=== PATIENT | female | born 1960 | race Caucasian/White ===

== ENCOUNTER 2022-06-12 09:13 | Outpatient (CLI) | payer OTHER, SELFPAY | END 2022-06-12 09:14 | disposition home or self-care (01) | PROVIDERS: PCP Physician Assistant Medical; Visit Provider Family Medicine | DX: M16.12 Unilateral primary osteoarthritis, left hip (principal); M25.552 Pain in left hip | CPT/HCPCS: 20610; 77002; J0702; Q9966 ==

== ENCOUNTER 2022-07-28 07:10 | Outpatient (CLI) | payer OTHER, SELFPAY | END 2022-07-28 07:11 | disposition home or self-care (01) | PROVIDERS: PCP Family Medicine; Visit Provider Family Medicine | DX: M54.16 Radiculopathy, lumbar region (principal); M51.36 Other intervertebral disc degeneration, lumbar region | CPT/HCPCS: 62323; J0702; Q9966 ==

== ENCOUNTER 2022-09-22 08:28 | Outpatient (CLI) | payer OTHER, SELFPAY | END 2022-09-22 08:29 | disposition home or self-care (01) | LOC: INJ CL 08:29 | PROVIDERS: PCP Family Medicine; Visit Provider Family Medicine | DX: M54.16 Radiculopathy, lumbar region (principal); M51.36 Other intervertebral disc degeneration, lumbar region | CPT/HCPCS: 64483; J1100; Q9966 ==

== ENCOUNTER 2022-12-22 13:27 | Outpatient (CLI) | payer OTHER, SELFPAY | END 2022-12-22 13:28 | disposition home or self-care (01) | PROVIDERS: PCP Family Medicine; Visit Provider Orthopaedic Surgery | DX: Z01.818 Encounter for other preprocedural examination (principal) | CPT/HCPCS: 36415; 86850; 86900; 86901 ==

== ENCOUNTER 2022-12-24 09:38 | Day surgery (SDC) | payer OTHER, SELFPAY ==
--- NOTE | 2022-12-08 09:52 | SUR.PREOP ---
12/08/22, briefly talked with pt per phone. She will schedule her H&P at [facility]. Instructed to come to the hospital lab on 12/22 for her type and screen. Candace Alfonso RN
[2022-12-24] VITALS (23 sets, daily range): BP systolic 100–149; BP diastolic 61–118; PULSE 52–88; RESP 12–99; TEMP 36.1–36.9; O2SAT 94–100; BMI 36.7
--- NOTE | 2022-12-24 | CRLHL7_ITS ---
For Patients: As a result of the Cures Act, medical imaging exams and procedure reports are released immediately into your electronic medical record. You may view this report before your referring provider. If you have questions, please contact your health care provider. INDICATION: Postoperative evaluation. TECHNIQUE: Two views of the left hip. COMPARISON: Earlier same day intraoperative imaging. FINDINGS: Interval completion of left total hip arthroplasty. Hardware appears intact and well positioned. No dislocation or fracture. Small volume postoperative gas about the left hip. IMPRESSION: Expected postoperative changes recent left total hip arthroplasty. Dictated by Gwyn Branch MD @ 12/24/2022 6:17:23 PM Dictated by: Gwyn Branch MD @ 12/24/2022 18:17:31 (Electronically Signed)
[2022-12-24] MEDS: OXYCODONE (CR) 10 MG TAB.ER.12H PO (10:50)
[2022-12-24] MEDS: ACETAMINOPHEN 500 MG TABLET 1000 MG PO ×3 (10:50→23:30)
[2022-12-24] MEDS: CELECOXIB 200 MG CAPSULE PO (10:50)
[2022-12-24] MEDS: LACTATED RINGERS 1000 ML 1,000 ML 100 ML IV ×2 (11:25→13:40)
[2022-12-24] MEDS: SODIUM CHLORIDE 0.9 % (FLUSH) 10 ML SYRINGE IVF (11:28)
--- NOTE | 2022-12-24 11:28 | SUR.PREOP ---
multiple attempts at iv.
[2022-12-24] MEDS: MIDAZOLAM HCL 1 MG/ML inj IVP (12:10)
[2022-12-24] MEDS: fentaNYL 100 MCG/2 ML inj IVP (12:10)
--- NOTE | 2022-12-24 12:16 | SUR.PREOP ---
TIME?OUT:?1207, left hip PT/RN/MDA?VERIFICATION?OF?SURGICAL?SITE,?PROCEDURE,?AND?CONSENT OBTAINED?PRIOR?TO?INVASIVE?PROCEDURE.
--- NOTE | 2022-12-24 12:23 | P.NB_ITS ---
Nerve Block Nerve Block Time Seen by Provider: 12:15 Date Seen: 12/24/22 Type of block requested by surgeon for post-operative analgesia: TIERRA/LFCN Side: left Time out performed: Yes Verification of patient name: Yes Verification of date of : Yes Site marking: site marked Name of person performing procedure: Raghav Continuous monitoring Was continuous monitoring of O2 sat, B/P, data officer, recorded every 15 minutes?: Yes Procedure Checklist: sterile prep, needles and gloves Ultrasound guided. Images saved: Yes Medications given in 5ml increments after negative aspiration: Ropivicaine %: 0.5 mL: 30 Needle gauge: 20 Decadron (mg): 10 Precedex (mcg): 25 Patient tolerated procedure well: Yes Additional comments: Needle noted below psoas tendon needle noted adjacent to LFCN Block Charges Block Charge (with Pro Fee): Other Periph Nerve Block Use of Ultrasound Machine for Block: Yes- US Guidance/pain block
--- NOTE | 2022-12-24 12:23 | W.ANESCHARGE ---
Anesthesia Charges Start Date/Time Anesthesia Start Date: 12/24/22 Anesthesia Start Time: 12:27 Stop Date/Time Anesthesia Stop Date: 12/24/22 Anesthesia Stop Time: 15:04
[2022-12-24] MEDS: CEFAZOLIN 2 GM INJ IVP (12:35)
--- NOTE | 2022-12-24 13:00 | CRLHL7_ITS ---
For Patients: As a result of the Century Cures Act, medical imaging exams and procedure reports are released immediately into your electronic medical record. You may view this report before your referring provider. If you have questions, please contact your health care provider. INDICATION: Follow up left hip arthroplasty. TECHNIQUE: Fluoroscopically guided intraoperative evaluation of the left hip. Two intraoperative spot images were obtained. FINDINGS: Left hip arthroplasty. The components are adequately aligned. 80.6 seconds fluoroscopy time utilized. IMPRESSION: 80.6 seconds fluoroscopy time utilized intraoperatively. Dictated by Naldo Mann MD @ 12/24/2022 3:03:18 PM (Electronically Signed)
--- NOTE | 2022-12-24 14:14 | PM.ORPRC ---
Procedure Note Date of procedure: 12/24/22 Procedure: PREOPERATIVE DIAGNOSIS: Left hip osteoarthritis POSTOPERATIVE DIAGNOSIS: Left hip osteoarthritis NAME OF OPERATION: Left total hip arthroplasty SURGEON: Ethan Pete MD INSPECTOR BICYCLE: Bonnie Woodard PA-C, KASH White IMPLANTS: 1. [employer] # 50 sector ingrowth cup 2. 32 x 50 +4 neutral polyethylene 3. Actis #4 standard collared ingrowth stem 4. 32 + 1.0 ceramic femoral head ANESTHESIA: General ESTIMATED BLOOD LOSS: 900 cc COMPLICATIONS: None SPECIMENS: None DRAINS: None PREOPERATIVE ANTIBIOTICS: Ancef 2 grams INDICATIONS: The patient is a 62-year-old with a longstanding history of severe, unrelenting left hip pain secondary to end-stage left hip osteoarthritis. Despite appropriate nonoperative management, including activity modification, use of an assist device, anti-inflammatories, [id number] pain medication, physical therapy and injections, they continue to have pain and disability. Operative intervention was offered. The risks, benefits and expected outcomes were discussed in detail. These included but were not limited to: Infection, bleeding, injury to blood vessel or nerve, venous thromboembolism. All questions were answered to their satisfaction. Use of an hospital medical assistant was necessary throughout the case for patient positioning and safety, soft tissue retraction and closure. PROCEDURE: The patient was placed supine on the [place] table. General anesthesia was administered. The hospital medical assistant made sure the patient was properly positioned. The left hip was prepped and draped in the usual sterile fashion. The image intensifier was brought in for a perfect AP pelvis and a perfect double tear drop AP view of each hip which were used for intraoperative templating with our fluoroscopic guide. An oblique incision was made 3 cm distal and 3 cm lateral to the anterior superior iliac spine. The hospital medical assistant retracted the soft tissues to protect them. Subcutaneous dissection was taken with electrocautery to the superficial fascia. The fascia was divided in line with the incision. Blunt dissection was carried medially to the tensor fascia alfonso and sartorius interval. Deep dissection was carried with electrocautery. The circumflex vessels were cauterized and divided. The capsule was exposed and then divided in a T-fashion, tagged with #1 Ethibond sutures. Retractors were placed in the joint, held by the hospital medical assistant. The corkscrew was placed in the femoral head. The neck cut was made in the subcapital region. We made a second neck cut more distal. The napkin ring of bone was removed. The femoral head was removed intact. Acetabular retractors were placed, held by the hospital medical assistant. The labrum was sharply debrided. The capsule was released. The 43 mm reamer was used to the true medial wall. We then enlarged in 2 mm increments using the image intensifier for our reamer placement. We impacted the cup which had excellent purchase. We placed the hole eliminator and the polyethylene. Attention was then turned to the proximal femur. The limb was placed in 140 degrees of external rotation, maximum extension and adduction. A significant amount of time was spent releasing the capsule to allow us to deliver the femur into the wound and complete the femoral side safely. Retractors were held by the hospital medical assistant throughout the femoral preparation. The coin box inspector and canal finder were used. Broaches were used to a stable size. The calcar reamer was used. Trial components were placed. The hip was reduced and was found to be stable with appropriate soft tissue tension. Length and offset had been nicely restored using the image intensifier and our fluoroscopic guide. Trial components were removed. The stem was impacted. We placed the femoral head. Again, the hip was reduced and was found to be stable with appropriate soft tissue tension. Length and offset had been nicely restored. The hospital medical assistant did a three minute dilute Betadine solution soak. The hospital medical assistant irrigated the wound with 3 liters of normal saline via pulse lavage. The hospital medical assistant repaired the anterior capsule with a #1 Vicryl and our previously placed Ethibond sutures. The hospital medical assistant closed the fascia over the tensor fascia alfonso with a #1 PDO Stratafix, subcutaneous tissues with 2-0 Vicryl, skin with a running 3-0 Stratafix and glue. A dry dressing was applied by the hospital medical assistant. Sponge and needle counts were correct x 2. The patient tolerated the procedure well; there were no apparent complications. They were awakened and extubated in the operating room, sent to the Post-Anesthesia Care Unit in satisfactory condition. PLAN: 1. The patient will be mobilized with physical therapy, weight-bearing as tolerates 2. Xarelto x 5 days then aspirin x 30 days will be used for DVT prophylaxis 3. The patient will be discharged once medically appropriate
--- NOTE | 2022-12-24 15:06 | W.ANESCHARGE ---
Anesthesia Charges Start Date/Time Anesthesia Start Date: 12/24/22 Anesthesia Start Time: 12:27 Stop Date/Time Anesthesia Stop Date: 12/24/22 Anesthesia Stop Time: 15:04
[2022-12-24] MEDS: MEPERIDINE 25 MG/ML INJ 12.5 MG IVP (15:15)
[2022-12-24] MEDS: fentaNYL 100 MCG/2 ML inj 50 MCG IVP ×2 (15:20→15:30)
[2022-12-24] MEDS: HYDROmorphone 0.5 mg/0.5 ml inj IVP ×3 (16:15→18:40)
[2022-12-24] MEDS: OXYCODONE 5 MG TABLET PO ×3 (16:55→21:11)
[2022-12-24] MEDS: LACTATED RINGERS 1000 ML 1,000 ML 75 ML IV (16:56)
[2022-12-24] MEDS: CEFAZOLIN 2 GM in 0.9 % SODIUM CHLORIDE Mini-bag 100 ML IVPB (17:48)
--- NOTE | 2022-12-24 19:24 | PC.NURSE ---
End of shift-- Pleasant and cooperative, alert and oriented patient arrived from PACU at approximately 1600 today. VSS and pt is afebrile. SPO2 maintained >94% on RA. Pt c/o pain in her left hip which she described as a charley horse and rated 7-8 out of 10. She was given Dilaudid, Oxycodone and Tylenol with stated partial improvement. See eMAR for details. Dressing to left hip is C/D/I and CMS is WNL. LS CTA. She denied nausea and tolerated water, crackers and jello without difficulty. She declined to order dinner and stated that her plans to bring her food. She has denied the urge to urinate as of yet and has not yet been out of bed. Report to DANNY Yun.
--- NOTE | 2022-12-24 19:49 | P.IMCN_ITS ---
Date of Consult Patient: Cyn Patient Consult date: 12/24/22 Requesting Physician: Orthopedics Primary Care Provider: Lluvia Dunham MD Consult Narrative Reason for consult: Post operative management of hypertension, obstructive sleep apnea Narrative: Emily Mae is a 62 year old woman with end-stage left coxarthrosis undergoes elective left total hip arthroplasty today without any apparent complications. She is concerned about managing her postoperative pain. Working closely with her nurse to achieve this. Review of Systems Status of ROS: Reports: 10 or more systems reviewed and unremarkable except as noted in History and below Narrative: Denies chest heaviness, pressure, tightness, or pain. Denies cough, dyspnea at rest, paroxysmal nocturnal dyspnea, orthopnea. Denies orthostasis, near-syncope, or syncope. Denies palpitations or chest fluttering. Denies nausea or vomiting. Denies fevers, rigors, diaphoresis. No diarrhea or constipation. Denies polyuria, polydipsia, polyphagia. Denies urinary frequency, dysuria, urgency, or hematuria. No recent trauma or injury. No recent travel or illness. Denies weight gain or weight loss. Denies night sweats. Lives with . 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 Requests full resuscitation in the event of cardiopulmonary demise. Designates her as her power of collections attorney for health should that be required. Has not smoked for years. Twenty-five pack-year history of smoking. Occasionally drinks alcoholic beverages. Has not had any alcoholic beverage since late last year. Denies use of any other street or recreational drugs. [facility] Medical History (Updated 12/24/22 @ 19:59 by Dave Redd MD) Allergic conjunctivitis and rhinitis Anxiety with depression Cardiac arrhythmia Dyslipidemia History of vitamin D deficiency Hypertension Insomnia Obesity with body mass index (BMI) of 30.0 to 39.9 Obstructive sleep apnea on CPAP On postmenopausal hormone replacement therapy Sensorineural hearing loss (SNHL) of both ears Stage 3 chronic kidney disease Vesicular palmoplantar eczema Surgical History (Updated 12/24/22 @ 19:59 by Dave Redd MD) History of arthroscopy of left knee (09/18/16) History of section (1981) History of cholecystectomy (12/11/10) History of hysterectomy for benign disease (12/23/11) History of surgery on right wrist (12/12/13) S/P left knee arthroscopy (09/18/16) S/P ORIF (open reduction internal fixation) fracture (12/12/13) Social History Highest level of school completed/degree received: decline to answer Smoking Status: Former smoker What tobacco products do you use: cigarettes Smoking quit date/years: >15 years ago Do you use any of these nicotine containing products: None How often do you have a drink containing alcohol: 4 or more times a week Alcohol type: beer How many standard drinks containing alcohol do you have on a typical day: 1 or 2 How often do you have six or more drinks on one occasion: Never AUDIT-C Alcohol total score: 4 Non-prescribed substance use: denies use Caffeine: Yes (COFFEE 1 CUP) Are you using contraception or practicing any form of control: No Meds Home Medications and Allergies Home Medications Medication Instructions Recorded Confirmed Type atorvastatin 40 mg tablet 40 mg PO HS 09/24/22 12/24/22 History hydrochlorothiazide 12.5 mg tablet 12.5 mg PO DAILY 09/24/22 12/24/22 History lisinopril 10 mg tablet 10 mg PO DAILY 09/24/22 12/24/22 History estradiol 0.5 mg tablet 0.5 mg PO DAILY 12/24/22 12/24/22 History lorazepam 1 mg tablet (Ativan) 0.5 - 1 mg PO DAILY PRN anxiety 12/24/22 12/24/22 History triamcinolone acetonide 0.1 % 1 applic topical TID PRN 12/24/22 12/24/22 History topical cream Allergies Allergy/AdvReac Type Severity Reaction Status Date / Time nickel Allergy Intermediate Rash Verified 12/24/22 09:45 silver sulfadiazine Allergy Rash Verified 12/24/22 09:45 cortisone AdvReac Verified 12/24/22 09:45 Exam Narrative: Exam Narrative: Appears comfortable and in no acute distress. Alert and oriented to self, place, time, situation. Friendly, cooperative. Articulate. Mood and affect are congruent. Vision is grossly normal. Mild decrease global hearing deficit. Neck is supple. Lungs are clear to auscultation. Heart tones with regular rhythm. Abdomen with active bowel sounds, soft, nontender. Const: Vital Signs, click to edit/add: Vital Signs - 24 hr 12/24/22 10:09 12/24/22 12:10 12/24/22 12:21 Temperature 97.5 F L 97.5 F L Pulse Rate 64 55 L 52 L Pulse Rate [Right Pulse Oximeter] Respiratory Rate 20 16 16 Blood Pressure 112/72 126/76 108/68 Blood Pressure [Le ft Arm] Blood Pressure [Ri ght Arm] Pulse Oximetry 97 100 100 Oxygen Delivery Me thod Room Air Nasal Cannula Nasal Cannula Oxygen Flow Rate 3 3 12/24/22 15:05 12/24/22 15:10 12/24/22 15:15 Temperature 97 F L Pulse Rate 62 64 67 Pulse Rate [Right Pulse Oximeter] Respiratory Rate 14 12 12 Blood Pressure 107/74 112/73 109/69 Blood Pressure [Le ft Arm] Blood Pressure [Ri ght Arm] Pulse Oximetry 98 95 95 Oxygen Delivery Me thod Room Air Room Air Room Air Oxygen Flow Rate 12/24/22 15:23 12/24/22 15:25 12/24/22 15:30 Temperature Pulse Rate 62 60 60 Pulse Rate [Right Pulse Oximeter] Respiratory Rate 12 12 12 Blood Pressure 113/72 109/63 100/67 Blood Pressure [Le ft Arm] Blood Pressure [Ri ght Arm] Pulse Oximetry 97 95 94 Oxygen Delivery Me thod Room Air Room Air Room Air Oxygen Flow Rate 12/24/22 15:35 12/24/22 15:40 12/24/22 16:00 Temperature 97.8 F 97.3 F L Pulse Rate 56 L 72 66 Pulse Rate [Right Pulse Oximeter] Respiratory Rate 12 12 12 Blood Pressure 100/61 104/79 Blood Pressure [Le ft Arm] 139/105 H Blood Pressure [Ri ght Arm] Pulse Oximetry 96 95 Oxygen Delivery Me thod Room Air Room Air Room Air Oxygen Flow Rate 12/24/22 16:00 12/24/22 16:15 12/24/22 16:15 Temperature 97.3 F L 97.3 F L Pulse Rate Pulse Rate [Right Pulse Oximeter] 66 57 L 57 L Respiratory Rate 12 12 12 Blood Pressure Blood Pressure [Le ft Arm] Blood Pressure [Ri ght Arm] 139/105 H 149/84 H 149/84 H Pulse Oximetry 99 98 98 Oxygen Delivery Me thod Room Air Room Air Room Air Oxygen Flow Rate 12/24/22 16:30 12/24/22 16:45 12/24/22 17:00 Temperature 97.3 F L 97.3 F L 97.3 F L Pulse Rate Pulse Rate [Right Pulse Oximeter] 85 65 56 L Respiratory Rate 12 12 14 Blood Pressure Blood Pressure [Le ft Arm] Blood Pressure [Ri ght Arm] 131/118 H 127/69 131/75 Pulse Oximetry 98 99 97 Oxygen Delivery Me thod Room Air Room Air Room Air Oxygen Flow Rate 12/24/22 17:30 12/24/22 18:30 12/24/22 19:07 Temperature 97.3 F L 97.2 F L 97.3 F L Pulse Rate Pulse Rate [Right Pulse Oximeter] 70 79 88 Respiratory Rate 14 14 16 Blood Pressure Blood Pressure [Le ft Arm] Blood Pressure [Ri ght Arm] 107/69 102/72 114/72 Pulse Oximetry 99 97 97 Oxygen Delivery Me thod Room Air Room Air Room Air Oxygen Flow Rate 3 3 Assessment and Plan Assessment and plan (1) Status post total hip replacement, left: Status: Acute (2) Osteoarthritis of left hip: Status: Acute (3) Obstructive sleep apnea on CPAP: Status: Acute (4) Hypertension: Status: Acute (5) Postmenopausal HRT (hormone replacement therapy): Status: Acute (6) Lumbar degenerative disc disease: Status: Acute Plan 1. Reviewed impression with patient and her . 2. Will hold her hydrochlorothiazide. Continue with her lisinopril. 3. May use home CPAP device. 4. Continue with the estradiol for now. Did discuss the possibility of eventually trying to see how she does without this in the future when she sees her primary care physician again 5. Agree with perioperative antibiotic prophylaxis efforts. 6. Agree with postoperative venous thromboembolism prophylaxis efforts. 7. Will follow with Orthopedic surgery while in hospital. 8. Have completed the hospitalist portion of the discharge.
[2022-12-24] MEDS: SENNOSIDES 1 TAB TABLET 2 TAB PO (21:12)
[2022-12-24] MEDS: ONDANSETRON 2 MG/ML inj 4 MG IVP (22:25)
[2022-12-25] MEDS: CEFAZOLIN 2 GM in 0.9 % SODIUM CHLORIDE Mini-bag 100 ML IVPB (01:54)
[2022-12-25] MEDS: OXYCODONE 5 MG TABLET PO ×3 (01:54→08:47)
[2022-12-25 02:19] VITALS: BP 104/78; PULSE 73; RESP 16; TEMP 36.1; O2SAT 96
--- NOTE | 2022-12-25 05:33 | PC.NURSE ---
[id number] Pt with some anxiety related to post op pain, rates L hip pain 4-5/10 states this is tolerable and is currently satisfied with pain management strategy. PRN oxy administered during shift as well as scheduled tylenol. ambulating with walker, GB, 1A, Pt up to br approx 0245 then requested to sleep in recliner remainder of night. continuous ice to L hip, dressing C/D/I, declined wearing foot SCD's due to inability to sleep, pt doing frequent ankle pumps. Denies N/V this shift, denies chest pain, sob, or headache. pedal pulses present, bruising noted to posterior L hip. Anxiety decreased as night progressed.
[2022-12-25] MEDS: ACETAMINOPHEN 500 MG TABLET 1000 MG PO (06:14)
[2022-12-25 07:00] VITALS: BP 105/60; PULSE 62; PULSE 73; RESP 16; TEMP 36.4; O2SAT 100
[2022-12-25 07:54] LABS: Basophils Percent Auto 0.1 % (0.0-3.0); Hematocrit 34.3 % (33.0-51.0); Hemoglobin* 11.5 gm/dL (12.0-16.0); Immature Granulocytes Pct Auto 0.2 %; Lymphocytes Percent Auto 6.7 % (20-44); Mean Corpuscular HGB Conc 34 gm/dL (32-36); Mean Corpuscular Hemoglobin 30 pg (26-34); Mean Corpuscular Volume 88 fL (80-100); Monocytes Percent Auto 5.8 % (0.0-11.0); Neutrophils Percent Auto 87.2 % (42.0-72.0); Platelet Count* 234 K/uL (140-440); RDW Coefficient of Variation % 13.2 % (11.5-15.5); Red Blood Count 3.89 m/uL (4.00-5.20); White Blood Count* 11.51 K/uL (4.50-11.00)
[2022-12-25 07:57] LABS: Slide Review Reflex No
[2022-12-25 08:07] LABS: Potassium* 4.2 mmol/L (3.6-5.1); Sodium* 132 mmol/L (135-149)
[2022-12-25 08:10] LABS: Creatinine* 0.9 mg/dL (0.5-1.5); Est. Creatinine Clearance* 49.72; Estimated Glomerular Filt Rate 72 ml/min
[2022-12-25 08:11] LABS: Blood Urea Nitrogen* 14 mg/dL (7-30)
--- NOTE | 2022-12-25 08:35 | P.ORPN_ITS ---
Subjective Subjective Time Seen by Provider: 07:45 Date Seen: 12/25/22 Principal diagnosis: s/p day 1 left total hip arthroplasty Interval history: Kenyetta appears to be in low spirits and sad this morning during our conversation, possibly the result of poor sleep last night. This morning, she is resting comfortably in her recliner. Patient attributes her trouble sleeping to taking Oxycodone before bed. Patient complains moderate left hip pain (ranks 4/10) that worsens with ambulation. Pain is well managed with current scheduled and PRN oral pain medications and ice. However, Kenyetta mentioned acetaminophen-codeine #3 has worked well for her in the past and she may want to change this medication in the near future if she continues to have trouble sleeping at home over this weekend. Denies: fever, chills, body aches, chest pain, SOB, lightheadedness, dizziness. Patient has not yet had a bowel movement, but admits to flatulence. Patient feels ready to be discharged to home and is eager to return to sleeping in her own bed. No acute events over night. Ortho Exam Narrative Exam Narrative: Incision/Dressing: Dressing appears clean and dry. No drainage present. Mepilex intact. Left hip appears moderately swollen but supple with no obvious erythema, fluctuance or excessive warmth. No ecchymosis or erythematous streaking. Warmth around the wound is appropriate. Ice is being utilized as needed. CMS: Intact distally with 2+ Dorsalis pedis and Posterior Tibial pulses. 5/5 motor strength dorsal and plantar flexion. Confirmed sensation distally. Intact straight leg raise. Calf: Bilateral calves are supple, with no swelling, pain, tenderness, erythema, discoloration or coolness to the touch. Constitutional: Patient is alert and oriented x3. Patient is in no acute distress and converses without labored breathing. Patient is able to make decisions and demonstrates good insight. Patient is pleasant and cooperative. Affect is full range and appropriate for the circumstances. Const Vital Signs, click to edit/add: Vital Signs - 24 hr 12/24/22 10:09 12/24/22 12:10 12/24/22 12:21 Temperature 97.5 F L 97.5 F L Pulse Rate 64 55 L 52 L Pulse Rate [Left Dorsalis Pedis] Pulse Rate [Right Pulse Oximeter] Respiratory Rate 20 16 16 Blood Pressure 112/72 126/76 108/68 Blood Pressure [Left Arm] Blood Pressure [Right Arm] Pulse Oximetry 97 100 100 Oxygen Delivery Method Room Air Nasal Cannula Nasal Cannula Oxygen Flow Rate 3 3 12/24/22 15:05 12/24/22 15:10 12/24/22 15:15 Temperature 97 F L Pulse Rate 62 64 67 Pulse Rate [Left Dorsalis Pedis] Pulse Rate [Right Pulse Oximeter] Respiratory Rate 14 12 12 Blood Pressure 107/74 112/73 109/69 Blood Pressure [Left Arm] Blood Pressure [Right Arm] Pulse Oximetry 98 95 95 Oxygen Delivery Method Room Air Room Air Room Air Oxygen Flow Rate 12/24/22 15:23 12/24/22 15:25 12/24/22 15:30 Temperature Pulse Rate 62 60 60 Pulse Rate [Left Dorsalis Pedis] Pulse Rate [Right Pulse Oximeter] Respiratory Rate 12 12 12 Blood Pressure 113/72 109/63 100/67 Blood Pressure [Left Arm] Blood Pressure [Right Arm] Pulse Oximetry 97 95 94 Oxygen Delivery Method Room Air Room Air Room Air Oxygen Flow Rate 12/24/22 15:35 12/24/22 15:40 12/24/22 16:00 Temperature 97.8 F 97.3 F L Pulse Rate 56 L 72 66 Pulse Rate [Left Dorsalis Pedis] Pulse Rate [Right Pulse Oximeter] Respiratory Rate 12 12 12 Blood Pressure 100/61 104/79 Blood Pressure [Left Arm] 139/105 H Blood Pressure [Right Arm] Pulse Oximetry 96 95 Oxygen Delivery Method Room Air Room Air Room Air Oxygen Flow Rate 12/24/22 16:00 12/24/22 16:15 12/24/22 16:15 Temperature 97.3 F L 97.3 F L Pulse Rate Pulse Rate [Left Dorsalis Pedis] Pulse Rate [Right Pulse Oximeter] 66 57 L 57 L Respiratory Rate 12 12 12 Blood Pressure Blood Pressure [Left Arm] Blood Pressure [Right Arm] 139/105 H 149/84 H 149/84 H Pulse Oximetry 99 98 98 Oxygen Delivery Method Room Air Room Air Room Air Oxygen Flow Rate 12/24/22 16:30 12/24/22 16:45 12/24/22 17:00 Temperature 97.3 F L 97.3 F L 97.3 F L Pulse Rate Pulse Rate [Left Dorsalis Pedis] Pulse Rate [Right Pulse Oximeter] 85 65 56 L Respiratory Rate 12 12 14 Blood Pressure Blood Pressure [Left Arm] Blood Pressure [Right Arm] 131/118 H 127/69 131/75 Pulse Oximetry 98 99 97 Oxygen Delivery Method Room Air Room Air Room Air Oxygen Flow Rate 12/24/22 17:30 12/24/22 18:30 12/24/22 19:07 Temperature 97.3 F L 97.2 F L 97.3 F L Pulse Rate Pulse Rate [Left Dorsalis Pedis] Pulse Rate [Right Pulse Oximeter] 70 79 88 Respiratory Rate 14 14 16 Blood Pressure Blood Pressure [Left Arm] Blood Pressure [Right Arm] 107/69 102/72 114/72 Pulse Oximetry 99 97 97 Oxygen Delivery Method Room Air Room Air Room Air Oxygen Flow Rate 3 3 12/24/22 20:05 12/24/22 21:14 12/24/22 22:07 Temperature 97.9 F 97.9 F 97.9 F Pulse Rate Pulse Rate [Left Dorsalis Pedis] Pulse Rate [Right Pulse Oximeter] 75 75 74 Respiratory Rate 99 H 16 16 Blood Pressure Blood Pressure [Left Arm] Blood Pressure [Right Arm] 113/78 116/70 116/70 Pulse Oximetry 99 99 Oxygen Delivery Method Room Air Room Air Room Air Oxygen Flow Rate 0 0 12/24/22 23:00 12/25/22 02:19 Temperature 98.5 F 97.0 F L Pulse Rate Pulse Rate [Left Dorsalis Pedis] 73 Pulse Rate [Right Pulse Oximeter] 74 Respiratory Rate 16 16 Blood Pressure Blood Pressure [Left Arm] Blood Pressure [Right Arm] 129/75 104/78 Pulse Oximetry 98 96 Oxygen Delivery Method Room Air Room Air Oxygen Flow Rate 0 0 Documenting provider has reviewed patient's vital signs: yes Assessment and Plan Assessment and plan (1) Status post total hip replacement, left: Status: Acute (2) Osteoarthritis of left hip: Status: Acute (3) Obstructive sleep apnea on CPAP: Status: Acute (4) Hypertension: Status: Acute (5) Postmenopausal HRT (hormone replacement therapy): Status: Acute (6) Lumbar degenerative disc disease: Status: Acute Plan - Complete 23 hour perioperative antibiotics. - PT/OT consults for education and assistance. - Social consult for discharge planning. - Weight bear as tolerated. - DVT prophylaxis includes: Xarelto x 5 days followed by aspirin 81 mg BID x 30 days. Also bilateral knee high Kevin stockings (x 1 month), frequent ambulation and ankle pumps when sedentary. - Prescribed analgesics as needed. Patient is content with current narcotic medications. Minimize narcotic pain medication use; wean off and discontinue as soon as possible. - Kenyetta may call our On-call PA, Bonnie Slater, this weekend if she continues to struggle with sleeping and wishes to switch her oxycodone for acetaminophen- codeine #3. Bonnie has been notified. - Anticipate patient will be discharged to home this afternoon if the patient remains medically stable, pain is controlled and is safe with ambulation. - Return to clinic in 1 week for a wound check. Mepilex dressing will be removed at this appointment. Remove sooner if dressing becomes saturated. - Return to clinic in [address] Pete. - Phone Orthopedics with any questions or concerns.
[2022-12-25] MEDS: RIVAROXABAN 10 MG TABLET PO (08:47)
[2022-12-25] MEDS: SENNOSIDES 1 TAB TABLET 2 TAB PO (08:47)
[2022-12-25 09:08] VITALS: BP 104/79; PULSE 66; RESP 16; TEMP 36.1
[2022-12-25 11:00] VITALS: BP 111/72; PULSE 62; RESP 16
--- NOTE | 2022-12-25 13:22 | PC.NURSE ---
Pt alert and oriented, vitals stable, softer BP this AM at 105/60, pt refused scheduled Lisinopril, updated, no new orders. BP rechecked after therapies and 111/72, pt asymptomatic, denies dizziness and lightheadedness. Pt voiding without difficulty, tolerating PO intake. Pain rated 4-6/10 to L hip, PRN Oxycodone admin w/ ice pack application, pt states tolerable pain level. Pt cleared by PT and OT. Order for d/c home, d/c paperwork reviewed w/ pt and pt's present at bedside, questions answered. Pt given WC ride out to spouses car after IV removed intact without issues.
== END 2022-12-25 12:00 | disposition home or self-care (01) ==
LOC: OR 09:40 → MEDSURG 09:43
PROVIDERS: PCP Family Medicine; Visit Provider Orthopaedic Surgery
PROC: (CPT 27130; principal; 2022-12-24 11:30)
DX: M16.12 Unilateral primary osteoarthritis, left hip (principal); G47.33 Obstructive sleep apnea (adult) (pediatric); Z99.89 Dependence on other enabling machines and devices; Z79.890 Hormone replacement therapy; M51.36 Other intervertebral disc degeneration, lumbar region; I12.9 Hypertensive chronic kidney disease with stage 1 through stage 4 chronic kidney disease, or unspecified chronic kidney disease; N18.30 Chronic kidney disease, stage 3 unspecified; E66.9 Obesity, unspecified; Z68.36 Body mass index [BMI] 36.0-36.9, adult
CPT/HCPCS: 27130; 01214; 36415; 73501; 73502; 76942; 82565; 84132; 84295; 84520; 85025; 97110; 97116; 97161; 97165; 97530; 97535; A9270; C1776; J0330; J0690; J1100; J1170; J2175; J2250; J2405; J2704; J2710; J3010; J3490; J7120

== ENCOUNTER 2023-03-23 14:00 | Outpatient (RCR) | payer OTHER, SELFPAY | END 2023-07-21 23:59 | disposition home or self-care (01) | PROVIDERS: PCP Family Medicine; Visit Provider Orthopaedic Surgery | DX: M25.552 Pain in left hip (principal); Z96.642 Presence of left artificial hip joint; M62.81 Muscle weakness (generalized); Z51.89 Encounter for other specified aftercare | CPT/HCPCS: 97110; 97116; 97140; 97161; 97164; 97535 ==

== ENCOUNTER 2025-07-24 16:25 | Outpatient (CLI) | payer MEDICARE, BC, SELFPAY | END 2025-07-24 16:26 | disposition home or self-care (01) | LOC: NFLDREF 07-26 10:31 | PROVIDERS: PCP Family Medicine; Referring Provider Family Medicine; Visit Provider Physician Assistant | DX: R30.0 Dysuria (principal); N39.0 Urinary tract infection, site not specified | CPT/HCPCS: 87086 ==